=== PATIENT | female | born 1985 | race Caucasian/White ===

== ENCOUNTER 2017-02-25 18:46 | Emergency (ER) | payer BC ==
[2017-02-25 20:16] VITALS: BP 126/80
[2017-02-25] MEDS ORDERED: Tetan/Diph/Pertus SYR(Tdap)* 0.5 ML SYR(BOOSTRIX) use SYR IM ONE (20:26)
--- NOTE | 2017-02-25 20:26 | UC ---
Laceration HPI - HPI Summary HPI Summary: 32 yo F accidentally cut her left hand with hedge clippers today approx 11am. States she finished the hedge clipping but noted that it kept splitting open so came for evaluation. Last tetanus unrecalled. - History Of Current Complaint Chief Complaint: UCLaceration Stated Complaint: LEFT HAND LACERATION Time Seen by Provider: 02/25/17 20:26 Hx Obtained From: Patient Laceration Location: Hand - left Mechanism Of Injury: Sharp Trauma Onset/Duration: Sudden Onset, Lasting Hours, Still Present Severity: Moderate Pain Intensity: 0 Pain Scale Used: 0-10 Numeric Aggravating Factors: Nothing Related History: Dominant Hand Right - Allergies/Home Medications Allergies/Adverse Reactions: Allergies Allergy/AdvReac Type Severity Reaction Status Date / Time No Known Allergies Allergy Verified 02/25/17 20:15 Home Medications: Home Medications Levonorgestrel (IUD) (NF) [Mirena (NF)] 20 mcg IU DAILY 02/25/17 [History Confirmed 02/25/17] PMH/Surg Hx/FS Hx/Imm Hx Previously Healthy: Yes - Surgical History Surgical History: Yes Surgery Procedure, Year, and Place: x2 - Family History Known Family History: Positive: Hypertension - Social History Occupation: Employed Full-time Alcohol Use: Weekly Alcohol Amount: once Substance Use Type: None Smoking Status (MU): Never Smoked Tobacco - Immunization History Most Recent Influenza Vaccination: none Most Recent Tetanus Shot: unknown Review of Systems Constitutional: Negative Skin: Other - laceration left hand Eyes: Negative ENT: Negative Respiratory: Negative Cardiovascular: Negative Gastrointestinal: Negative Genitourinary: Negative Motor: Negative Neurovascular: Negative Musculoskeletal: Negative Neurological: Negative Psychological: Negative All Other Systems Reviewed And Are Negative: Yes Physical Exam Triage Information Reviewed: Yes Appearance: Well-Appearing, Well-Nourished, Pain Distress Vital Signs: Initial Vital Signs Temp 97.8 F 02/25/17 20:09 Pulse 80 02/25/17 20:09 Resp 15 02/25/17 20:09 BP 126/80 02/25/17 20:09 Pulse Ox 99 02/25/17 20:09 Vital Signs Reviewed: Yes Eyes: Positive: Conjunctiva Clear ENT: Positive: Normal ENT inspection, Hearing grossly normal. Negative: Muffled /hoarse voice Neck: Positive: Supple Respiratory: Positive: No respiratory distress Cardiovascular: Positive: RRR, Pulses Normal, Brisk Capillary Refill Musculoskeletal: Positive: Strength Intact, ROM Intact Neurological: Positive: Alert, Muscle Tone Normal, Other: Psychological Exam: Normal Skin: Positive: Other - laceration left hand between thumb and index finger, thenar eminence Laceration Repair - Laceration Repair 1 Description: Linear Laceration Size After Repair: Length (cm) - 3, Width (mm) - 3, Depth (mm) - 3 Contamination/FB Removal: no Modified For Repair: No Type Injection: Local Anesthesia Used: 2.0% Lido Cleansing Completed Via Routine Prep: Yes Irrigation With Pressure Irrigation Device: Yes Closure Material: Sutures - 6 Closure Method: Single Layer Suture Of: Skin Suture Type: Nylon - 4-0 Laceration Course/Dx - Differential Dx - Laceration/Wound Differental Diagnoses: Abrasion, Avulsion, Laceration, Puncture Wound Provider Diagnoses: left hand laceration with sutures. tetanus update with Tdap Discharge - Discharge Plan Condition: Stable Disposition: HOME Patient Education Materials: Laceration (ED), Care For Your Stitches (ED) Referrals: No Primary Care Phys,NOPCP [Primary Care Provider] - Additional Instructions: Return to urgent care to have your sutures removed in 7-10 days. Return if any new or worsening symptoms. We have given you a list of providers taking new patients so that you may get established with a primary care provider.
[2017-02-25] MEDS ORDERED: Lidocaine 2% PF * 5 ML VIAL INJ ONE (20:27)
== END 2017-02-25 21:33 | disposition home or self-care (01) ==
LOC: UCCORT 18:46
DX: S61.412A Laceration without foreign body of left hand, initial encounter (principal); W27.1XXA Contact with garden tool, initial encounter; Z23 Encounter for immunization
CPT/HCPCS: 12002; 90471; 90715; 99201; G0463